=== PATIENT | male | born 1995 | race Caucasian/White ===

== ENCOUNTER 2022-12-14 15:50 | Emergency (ER) | payer SELFPAY ==
[~2022-12-14] VITALS: Ht 175.3 cm; Wt 100.7 kg
[~2022-12-14 15:50] MED LIST: IBUP-2213
[2022-12-14 15:57] VITALS: BP 132/76
[2022-12-14] MEDS ORDERED: KETOROLAC 30 MG/ML VIAL IM ONE (18:25)
[2022-12-14] MEDS ORDERED: KETOROLAC 30 MG/ML VIAL ONE (19:50)
--- NOTE | 2022-12-14 20:24 | NUR ---
Patient refused medication (denies pain), PA Torres notified.
[2022-12-14] MEDS ORDERED: IBUP-2213 PO (20:49)
--- NOTE | 2022-12-14 20:58 | NUR ---
Urine sample collected and sent to lab.
[2022-12-14 21:04] LABS: APPEARANCE,URINE CLEAR (CLEAR); BILIRUBIN,URINE 1+ (NEGATIVE); BLOOD, URINE NEGATIVE (NEGATIVE); COLOR,URINE YELLOW (YELLOW); LEUKOCYTE ESTERASE ,URINE NEGATIVE (NEGATIVE); NITRITE, URINE NEGATIVE (NEGATIVE); PH,URINE 6.5 (5.0-9.0); UGLUCOSE NEGATIVE (NEGATIVE)
[2022-12-14 21:20] VITALS: BP 128/76
== END 2022-12-14 21:20 | disposition home or self-care (01) ==
LOC: MED 15:50
DX: M79.89 Other specified soft tissue disorders (principal); R42 Dizziness and giddiness; Z79.899 Other long term (current) drug therapy
CPT/HCPCS: 81003; 93971; 99284; J1885; Q0092

== ENCOUNTER 2024-06-29 23:00 | Emergency (ER) | payer BC, OTHER ==
[~2024-06-29] VITALS: Ht 175.3 cm; Wt 98.9 kg
[~2024-06-29 23:00] MED LIST changes: +IBUP-2213 PO
[2024-06-29 23:05] VITALS: BP 134/81; PULSE 101; RESP 16; TEMP 98.7; O2SAT 97
[2024-06-30] MEDS ORDERED: cefTRIAXone 1,000 MG VIAL ONE (02:11)
[2024-06-30] MEDS ORDERED: LIDOCAINE MPF 1% 5 ML ONE (02:12)
[2024-06-30] MEDS: cefTRIAXone 1,000 MG in LIDOCAINE MPF 1% 2.1 ML IM ONE (02:34)
[2024-06-30] MEDS: KETOROLAC 60 MG/2 ML VIAL IM ONE (02:36)
[2024-06-30] MEDS ORDERED: NAPR-337 PO (03:36)
[2024-06-30] MEDS ORDERED: AMOX1TAB8 PO (03:36)
== END 2024-06-30 03:48 | disposition home or self-care (01) ==
LOC: MED 23:00
DX: J02.9 Acute pharyngitis, unspecified (principal); R50.9 Fever, unspecified; Z79.899 Other long term (current) drug therapy
CPT/HCPCS: 96372; 99284; J0696; J1885; J2001